=== PATIENT | male | born 1965 | race Caucasian/White ===

== ENCOUNTER 2016-09-25 14:24 | Inpatient (IN) | payer OTHER, MEDICARE, MEDICAID ==
[2016-09-25 20:16] VITALS: BP 167/89; PULSE 67; RESP 18; TEMP 98.2; O2SAT 100
[2016-09-25] MEDS ORDERED: NITROGLYCERIN-DEXTROSE INJ 250 ML IV SCH (21:00)
[2016-09-25] MEDS ORDERED: ACETAMINOPHEN 325 MG TAB PO PRN (21:00)
[2016-09-25] MEDS ORDERED: HEPARIN SODIUM - IV 10,000 UNITS/10 ML VIAL IV ONE (21:00)
[2016-09-25] MEDS ORDERED: SODIUM CHLORIDE 0.9% FLUSH 5 ML FLUSH IVF PRN (21:00)
[2016-09-25] MEDS ORDERED: NITROGLYCERIN 0.4 MG SL 25 TABS/BTL SL PRN (21:00)
[2016-09-25] MEDS: SODIUM CHLORIDE 0.9% FLUSH 5 ML FLUSH IVF SCH (21:00)
[2016-09-25 22:19] LABS: HEMATOCRIT 45.5 % (39.0-51.0); MEAN CELL VOLUME 91.4 FL (80.0-100.0); MEAN CORPUSCULAR HEMOGLOBIN 30.2 PG (27.0-34.0); PLATELET COUNT 176 TH/MM3 (150-450); RED BLOOD COUNT 4.98 MIL/MM3 (4.50-5.90); RED CELL DISTRIBUTION WIDTH 16.4 % (11.6-17.2); REVIEW FLAG FINAL; WHITE BLOOD COUNT 10.7 TH/MM3 (4.0-11.0)
[2016-09-25 22:46] LABS: APTT (PATIENT) 27.4 SEC (24.3-30.1); INTERNATIONAL NORMALIZED RATIO 1.1 RATIO; PROTHROMBIN TIME - PATIENT 12.3 SEC (9.8-11.6)
[2016-09-25 23:00] VITALS: PULSE 72
[2016-09-25] MEDS: HEPARIN-D5W INJ 250 ML IV SCH (23:10)
[2016-09-25] MEDS: ATORVASTATIN 80 MG TAB PO SCH (23:11)
[2016-09-25] MEDS: METOPROLOL SUCCINATE 25 MG EXTENDED RELEASE TAB PO SCH (23:11)
[2016-09-25] MEDS: MORPHINE SULFATE 4 MG/ML INJ IV PRN (23:11)
[2016-09-26] VITALS (24 sets, daily range): BP systolic 126–159; BP diastolic 66–88; PULSE 72–96; RESP 14–18; TEMP 98.2–98.7; O2SAT 92–100
[2016-09-26] MEDS: MORPHINE SULFATE 4 MG/ML INJ IV PRN ×3 (03:29→20:53)
[2016-09-26 04:54] LABS: APTT (PATIENT) 28.8 SEC (24.3-30.1)
[2016-09-26 05:24] LABS: INTERNATIONAL NORMALIZED RATIO 1.1 RATIO; PROTHROMBIN TIME - PATIENT 12.4 SEC (9.8-11.6)
[2016-09-26 07:01] LABS: BASOPHIL % 0.2 % (0.0-2.0); EOSINOPHIL % 0.3 % (0.0-4.0); HEMATOCRIT 42.8 % (39.0-51.0); HEMO FLAGS DIFF FINAL; LYMPH % 2.1 % (9.0-44.0); LYMPHOCYTE # 0.2 TH/MM3 (1.0-4.8); MEAN CELL VOLUME 90.9 FL (80.0-100.0); MEAN CORPUSCULAR HEMOGLOBIN 30.5 PG (27.0-34.0); MEAN CORPUSCULAR HGB CONC 33.5 % (32.0-36.0); MONO % 12.5 % (0.0-8.0); NEUT % 84.9 % (16.0-70.0); PLATELET COUNT 166 TH/MM3 (150-450); RED BLOOD COUNT 4.71 MIL/MM3 (4.50-5.90); RED CELL DISTRIBUTION WIDTH 16.3 % (11.6-17.2); WHITE BLOOD COUNT 9.4 TH/MM3 (4.0-11.0)
[2016-09-26 07:30] LABS: BICARBONATE 24.9 MEQ/L (21.0-32.0); POTASSIUM 4.4 MEQ/L (3.5-5.1)
[2016-09-26] MEDS ORDERED: ASPIRIN EC 325 MG TABEC PO SCH (09:00)
[2016-09-26] MEDS: METOPROLOL SUCCINATE 25 MG EXTENDED RELEASE TAB PO SCH ×2 (09:46→20:53)
[2016-09-26] MEDS: SPIRONOLACTONE 25 MG TAB PO SCH ×2 (09:46→17:13)
[2016-09-26] MEDS: amLODIPine BESYLATE 5 MG TAB PO SCH (09:46)
[2016-09-26] MEDS: SODIUM CHLORIDE 0.9% FLUSH 5 ML FLUSH IVF SCH ×2 (09:47→20:54)
--- NOTE | 2016-09-26 11:30 | MB ---
cc: GEOVANY GUZMAN DO DATE OF CONSULTATION: 09/26/2016 REASON FOR CONSULTATION Elevated troponin. HISTORY OF PRESENT ILLNESS Maynor Beasley is a pleasant 51-year-old male who was transferred from [facility] for cardiac catheterization. He originally presented there on September 24, 2016 due to chest pain. Chest pain was somewhat sharp across his chest but did radiate to his left arm and he did get short of breath and nauseated with it. Originally troponins were not done as he started also complaining of some of epigastric pain. Because of this he had ultrasound done of his gallbladder with the report stating that he had some large stones and a mildly dilated common bile duct and a mildly distended gallbladder. Troponins were then checked and noted to be elevated at 8. He started complaining of some worse chest pain and at that time he was placed on a heparin drip and a nitroglycerin drip and sent to the ICU. I was called by ___ as they are unable to place him on their manager laboratory table as he weighs greater than what their table will take. Weight over there was supposedly 240 kilograms. He was transferred here with the intent of possible cardiac catheterization. PAST MEDICAL HISTORY 1. Hypertension. 2. Morbid obesity. 3. Chronic kidney disease. 4. Gallstones on ultrasound. 5. History of DVT and PE. PAST SURGICAL HISTORY 1. Appendectomy. 2. Cataract surgery. 3. IVC filter placed due to DVTs and PEs. ALLERGIES NO KNOWN DRUG ALLERGIES. MEDICATIONS (Transferred from [facility] in [facility]) 1. Heparin drip. 2. Nitroglycerin drip. 3. Norvasc 5 mg daily. 4. Aspirin 81 mg daily. 5. Lipitor 80 mg every night. 6. Metoprolol succinate 25 mg b.i.d. 7. Morphine 2 mg IV every 4 hours as needed for pain. 8. Nitro sublingual. 9. Spironolactone 25 mg b.i.d. 10. Was starting coumadin for his history of DVT and PE. FAMILY HISTORY Denies premature coronary artery disease or sudden cardiac within the family. SOCIAL HISTORY The patient denies smoking. Denies alcohol or drug abuse. REVIEW OF SYSTEMS 14 systems were reviewed including osteopathic pertinent positives and negatives above, otherwise negative. PHYSICAL EXAMINATION VITAL SIGNS: Temperature 98.2, heart rate 79, blood pressure 150/88, respirations 18, pulse ox 100%. Actual weight 267 kilograms. GENERAL: In general the patient appears well, in no acute distress, alert, awake and oriented x3. HEENT: Extraocular muscles intact. Mucous membranes moist. NECK: Neck is supple. No JVD at 45 degrees. No carotid bruits noted bilaterally. Carotid upstroke is brisk in nature. HEART: Heart is distant due to body habitus but no overt murmurs noted. LUNGS: Lungs have decreased breath sounds throughout. No rales noted. ABDOMEN: Abdomen is obese, nontender. EXTREMITIES: Show chronic venostasis. SKIN: Warm, dry and intact. NEUROLOGIC: No focal deficits. LABORATORY FINDINGS Hemoglobin 14.3, hematocrit 42.8, platelets 166. Potassium 4.4, BUN 23, creatinine 1.56. IMPRESSION 1. Mlw-[id number] myocardial infarction. 2. Morbid obesity with a BMI greater than 60. 3. Chronic kidney disease. 4. Hyperlipidemia. 5. History of DVT and PE with IVC placement. RECOMMENDATIONS 1. At this time the patient's weight is 267 kilograms and this was re-tested which will not fit on our table of 250 kilograms. We will attempt to see if there is any other cath labs in the area that is able to take more than 267 kilograms. 2. If we are unable to find a table for him to undergo cardiac catheterization due to his weight, he may need to be transferred back to [facility] and attempt medical management for his [id number] myocardial infarction. 3. We will continue him on heparin and nitroglycerin at this time. 4. Further recommendations will be made throughout the hospital course. Thank you for allowing me to see Maynor Beasley. If there are any questions, please do not hesitate to call. Geovany Guzman DO VGP/TLL /10:29 AM 10:53 AM
--- NOTE | 2016-09-26 13:17 | PD.CARD.PN ---
Objective Vital Signs / I&O Vital Signs Date Time Temp Pulse Resp B/P Pulse Ox O2 Delivery O2 Flow Rate FiO2 09/26/16 08:00 98.7 83 14 143/77 92 09/26/16 06:00 79 09/26/16 05:00 72 09/26/16 04:00 73 09/26/16 03:28 98.2 74 18 150/88 100 09/26/16 03:00 72 09/26/16 02:00 72 09/26/16 01:00 79 09/26/16 00:00 98.2 80 18 146/78 100 09/26/16 00:00 77 09/25/16 23:20 16 09/25/16 23:00 72 09/25/16 20:16 98.2 67 18 167/89 100 I/O 09/25/16 09/25/16 09/25/16 09/26/16 09/26/16 09/26/16 07:00 15:00 23:00 07:00 15:00 23:00 Output Total 500 ml Balance -500 ml Output Urine Total 500 ml Laboratory Laboratory Tests Test 09/25/16 09/26/16 09/26/16 22:09 04:28 06:41 White Blood Count 10.7 TH/MM3 9.4 TH/MM3 Red Blood Count 4.98 MIL/MM3 4.71 MIL/MM3 Hemoglobin 15.0 GM/DL 14.3 GM/DL Hematocrit 45.5 % 42.8 % Mean Corpuscular Volume 91.4 FL 90.9 FL Mean Corpuscular Hemoglobin 30.2 PG 30.5 PG Mean Corpuscular Hemoglobin 33.0 % 33.5 % Concent Red Cell Distribution Width 16.4 % 16.3 % Platelet Count 176 TH/MM3 166 TH/MM3 Mean Platelet Volume 7.8 FL 7.6 FL Prothrombin Time 12.3 SEC 12.4 SEC Prothromb Time International 1.1 RATIO 1.1 RATIO Ratio Activated Partial 27.4 SEC 28.8 SEC Thromboplast Time Neutrophils (%) (Auto) 84.9 % Lymphocytes (%) (Auto) 2.1 % Monocytes (%) (Auto) 12.5 % Eosinophils (%) (Auto) 0.3 % Basophils (%) (Auto) 0.2 % Neutrophils # (Auto) 8.0 TH/MM3 Lymphocytes # (Auto) 0.2 TH/MM3 Monocytes # (Auto) 1.2 TH/MM3 Eosinophils # (Auto) 0.0 TH/MM3 Basophils # (Auto) 0.0 TH/MM3 CBC Comment DIFF FINAL Differential Comment Sodium Level 140 MEQ/L Potassium Level 4.4 MEQ/L Chloride Level 106 MEQ/L Carbon Dioxide Level 24.9 MEQ/L Anion Gap 9 MEQ/L Blood Urea Nitrogen 23 MG/DL Creatinine 1.56 MG/DL Estimat Glomerular Filtration 47 ML/MIN Rate Random Glucose 153 MG/DL Calcium Level 8.7 MG/DL Assessment and Plan Problem List: (1) NSTEMI (non-ST elevated myocardial infarction) (2) Morbid obesity with BMI of 60.0-69.9, adult Assessment and Plan 1) Transfer to [place] for cardiac catheterization. Weight measured at [facility] was 245 kgs. On arrival here, weight was 268kg, checked twice. Table maximum is 250kg. 2) Unable to cath here 3) Called [facility] in [place], but their slabber table only hold 250 kgs also. 4) No other cath labs in the area can accept his weight on the table 5) Spoke to Dr. Giordano, unable to cath, will transfer back 6) Attempt medical management 7) Weight loss, if in the future he is under the weight limit, could consider ischemic evaluation and if positive then cardiac catheterization Geovany Gutierrez DO Sep 26, 2016 13:17
[2016-09-26 16:14] LABS: APTT (PATIENT) 30.1 SEC (24.3-30.1)
[2016-09-26] MEDS: ATORVASTATIN 80 MG TAB PO SCH (20:53)
[2016-09-26 23:47] LABS: APTT (PATIENT) 30.8 SEC (24.3-30.1)
[2016-09-27] VITALS (27 sets, daily range): BP systolic 131–161; BP diastolic 58–80; PULSE 66–84; RESP 16–25; TEMP 97.7–100.2; O2SAT 93–97
[2016-09-27] MEDS: MORPHINE SULFATE 4 MG/ML INJ IV PRN ×6 (00:33→21:59)
[2016-09-27 05:29] LABS: APTT (PATIENT) 32.4 SEC (24.3-30.1)
[2016-09-27] MEDS: SPIRONOLACTONE 25 MG TAB PO SCH ×2 (09:30→18:03)
[2016-09-27] MEDS: amLODIPine BESYLATE 5 MG TAB PO SCH (09:30)
[2016-09-27] MEDS: METOPROLOL SUCCINATE 25 MG EXTENDED RELEASE TAB PO SCH ×2 (09:30→20:48)
[2016-09-27] MEDS: SODIUM CHLORIDE 0.9% FLUSH 5 ML FLUSH IVF SCH ×2 (09:31→20:49)
--- NOTE | 2016-09-27 11:29 | PD.CARD.PN ---
Subjective Subjective Remarks No chest pain, no shortness of breath, off nitro drip Objective Medications Current Medications Medications (Trade) Dose Ordered Sig/Ayan Route Start Time Stop Time Status Last Admin (NS Flush) 2 ml BID IVF 09/25/16 21:00 09/27/16 09:31 IV Flush 2 ml 2 ml UNSCH PRN IVF 09/25/16 21:00 (Nitroglycerin-Dextrose Inj) 250 ml @ 0 mls/hr TITRATE IV 09/25/16 21:00 09/27/16 09:44 (Ecotrin Ec) 81 mg DAILY PO 09/26/16 09:00 09/26/16 09:46 (Nitrostat Sl) 0.4 mg Q5M PRN SL 09/25/16 21:00 Acetaminophen 650 mg 650 mg Q6H PRN PO 09/25/16 21:00 (Heparin-D5W Inj) 250 ml @ 0 mls/hr TITRATE IV 09/25/16 21:00 09/25/16 23:10 (Norvasc) 5 mg DAILY PO 09/26/16 09:00 09/27/16 09:30 (Aldactone) 25 mg BID@09,18 PO 09/26/16 09:00 09/27/16 09:30 (Toprol Xl) 25 mg BID PO 09/25/16 21:00 09/27/16 09:30 (Lipitor) 80 mg HS PO 09/25/16 21:00 09/26/16 20:53 (Morphine Inj) 2 mg Q4H PRN IV 09/25/16 22:45 09/27/16 09:32 Vital Signs / I&O Vital Signs Date Time Temp Pulse Resp B/P Pulse Ox O2 Delivery O2 Flow Rate FiO2 09/27/16 08:00 98.3 73 22 161/77 94 09/27/16 07:24 75 09/27/16 05:32 98.2 71 16 146/77 97 09/27/16 05:00 75 09/27/16 04:00 69 09/27/16 03:00 74 09/27/16 02:00 80 09/27/16 01:00 81 09/27/16 00:00 81 09/26/16 23:01 98.2 78 16 143/74 97 09/26/16 23:00 78 09/26/16 22:00 76 09/26/16 21:00 81 09/26/16 20:00 80 09/26/16 19:30 98.2 82 16 138/66 97 09/26/16 16:00 81 09/26/16 15:00 98.4 96 16 126/66 96 09/26/16 14:00 80 09/26/16 13:00 79 09/26/16 12:00 72 I/O 09/26/16 09/26/16 09/26/16 09/27/16 09/27/16 09/27/16 07:00 15:00 23:00 07:00 15:00 23:00 Intake Total 1045 ml 480 ml Output Total 500 ml 1250 ml 1025 ml Balance -500 ml -205 ml -545 ml Intake Oral 720 ml 480 ml IV Total 325 ml Output Urine Total 500 ml 1250 ml 1025 ml # Bowel Movements 0 Physical Exam GENERAL: NAD, AAOx3 SKIN: Warm and dry. HEAD: Atraumatic. Normocephalic. EYES: Pupils equal and round. No scleral icterus. No injection or drainage. ENT: No nasal bleeding or discharge. Mucous membranes pink and moist. NECK: Trachea midline. No JVD. CARDIOVASCULAR: Regular rate and rhythm. RESPIRATORY: No accessory muscle use. Decreased bilaterally due to body habitus GASTROINTESTINAL: Abdomen soft, obese, non-tender MUSCULOSKELETAL: Extremities with significant venous status changes NEUROLOGICAL: Awake and alert. No obvious cranial nerve deficits. Motor grossly within normal limits. Five out of 5 muscle strength in the arms and legs. Normal speech. PSYCHIATRIC: Appropriate mood and affect; insight and judgment normal. Laboratory Laboratory Tests Test 09/26/16 09/26/16 09/27/16 15:44 22:57 05:05 Activated Partial 30.1 SEC 30.8 SEC 32.4 SEC Thromboplast Time Assessment and Plan Problem List: (1) NSTEMI (non-ST elevated myocardial infarction) (2) Morbid obesity with BMI of 60.0-69.9, adult Assessment and Plan 1) Transfer to [place] for cardiac catheterization. Weight measured at [facility] was 245 kgs. On arrival here, weight was 268kg, checked twice. Table maximum is 250kg, and that's with the table in a stable position, not floating. 2) Unable to cath here 3) Called [facility] in [place], but their builder's labourer table only hold 250 kgs also. 4) No other cath labs in the area can accept his weight on the table 5) Spoke to Dr. Giordano, unable to cath, will transfer back 6) Attempt medical management 7) Weight loss, if in the future he is under the weight limit, could consider ischemic evaluation and if positive then cardiac catheterization 8) Continue heparin drip, nitro drip off, will start Imdur 30mg, titrate medications Geovany Gutierrez DO Sep 27, 2016 11:29
[2016-09-27] MEDS ORDERED: ISOSORBIDE MONONITRATE 30 MG TAB PO ONE (11:30)
[2016-09-27] MEDS: ASPIRIN EC 81 MG TABEC PO SCH (14:24)
[2016-09-27] MEDS: ATORVASTATIN 80 MG TAB PO SCH (20:48)
[2016-09-27 21:52] LABS: APTT (PATIENT) 31.5 SEC (24.3-30.1)
[2016-09-27] MEDS: HEPARIN-D5W INJ 250 ML IV SCH (22:05)
[2016-09-28] VITALS (20 sets, daily range): BP systolic 126–148; BP diastolic 57–82; PULSE 69–86; RESP 18–25; TEMP 98.6–99.9; O2SAT 93–97
[2016-09-28] MEDS: MORPHINE SULFATE 4 MG/ML INJ IV PRN ×6 (02:00→21:12)
[2016-09-28 04:44] LABS: APTT (PATIENT) 31.2 SEC (24.3-30.1)
[2016-09-28] MEDS ORDERED: ISOSORBIDE MONONITRATE 30 MG TAB PO SCH (07:00)
[2016-09-28 08:14] LABS: HEMATOCRIT 40.6 % (39.0-51.0); MEAN CELL VOLUME 90.3 FL (80.0-100.0); MEAN CORPUSCULAR HEMOGLOBIN 30.7 PG (27.0-34.0); PLATELET COUNT 171 TH/MM3 (150-450); RED CELL DISTRIBUTION WIDTH 16.2 % (11.6-17.2); REVIEW FLAG FINAL
--- NOTE | 2016-09-28 08:22 | PD.CARD.PN ---
Subjective Subjective Remarks No chest pain over night Objective Medications Current Medications Medications (Trade) Dose Ordered Sig/Ayan Route Start Time Stop Time Status Last Admin (NS Flush) 2 ml BID IVF 09/25/16 21:00 09/27/16 20:49 IV Flush 2 ml 2 ml UNSCH PRN IVF 09/25/16 21:00 (Nitroglycerin-Dextrose Inj) 250 ml @ 0 mls/hr TITRATE IV 09/25/16 21:00 09/27/16 09:44 (Nitrostat Sl) 0.4 mg Q5M PRN SL 09/25/16 21:00 Acetaminophen 650 mg 650 mg Q6H PRN PO 09/25/16 21:00 (Heparin-D5W Inj) 250 ml @ 0 mls/hr TITRATE IV 09/25/16 21:00 09/27/16 22:05 (Norvasc) 5 mg DAILY PO 09/26/16 09:00 09/27/16 09:30 (Aldactone) 25 mg BID@09,18 PO 09/26/16 09:00 09/27/16 18:03 (Toprol Xl) 25 mg BID PO 09/25/16 21:00 09/27/16 20:48 (Lipitor) 80 mg HS PO 09/25/16 21:00 09/27/16 20:48 (Morphine Inj) 2 mg Q4H PRN IV 09/25/16 22:45 09/28/16 06:03 (Imdur) 30 mg DAILY@07 PO 09/28/16 07:00 09/28/16 07:00 (Ecotrin Ec) 81 mg DAILY PO 09/27/16 13:00 09/27/16 14:24 Vital Signs / I&O Vital Signs Date Time Temp Pulse Resp B/P Pulse Ox O2 Delivery O2 Flow Rate FiO2 09/28/16 06:01 69 09/28/16 05:00 69 09/28/16 04:00 74 09/28/16 03:10 98.8 73 24 147/82 96 09/28/16 03:01 72 09/28/16 02:05 18 09/28/16 02:00 74 09/28/16 01:00 73 09/28/16 00:01 74 09/27/16 23:15 99.2 73 24 143/69 94 09/27/16 23:00 75 2/9/17 22:00 78 09/27/16 21:00 78 09/27/16 20:01 100.1 79 23 143/70 96 09/27/16 20:00 79 09/27/16 19:00 80 09/27/16 18:00 76 09/27/16 17:00 75 09/27/16 16:00 74 09/27/16 15:00 100.2 76 20 131/58 94 09/27/16 15:00 74 09/27/16 14:00 77 09/27/16 13:00 77 09/27/16 12:00 98.6 77 25 150/69 93 09/27/16 12:00 76 09/27/16 11:00 70 09/27/16 10:00 84 09/27/16 09:00 72 I/O 09/27/16 09/27/16 09/27/16 09/28/16 09/28/16 09/28/16 07:00 15:00 23:00 07:00 15:00 23:00 Intake Total 480 ml 882 ml 1331 ml Output Total 1025 ml 1330 ml 1475 ml Balance -545 ml -448 ml -144 ml Intake Oral 480 ml 720 ml 720 ml IV Total 162 ml 611 ml Output Urine Total 1025 ml 1330 ml 1475 ml # Voids 5 # Bowel Movements 0 0 Physical Exam GENERAL: NAD, AAOx3 SKIN: Warm and dry. HEAD: Atraumatic. Normocephalic. EYES: Pupils equal and round. No scleral icterus. No injection or drainage. ENT: No nasal bleeding or discharge. Mucous membranes pink and moist. NECK: Trachea midline. No JVD. CARDIOVASCULAR: Regular rate and rhythm. RESPIRATORY: No accessory muscle use. Decreased bilaterally due to body habitus GASTROINTESTINAL: Abdomen soft, obese, non-tender MUSCULOSKELETAL: Extremities with significant venous status changes NEUROLOGICAL: Awake and alert. No obvious cranial nerve deficits. Motor grossly within normal limits. Five out of 5 muscle strength in the arms and legs. Normal speech. PSYCHIATRIC: Appropriate mood and affect; insight and judgment normal. Laboratory Laboratory Tests Test 09/27/16 09/27/16 09/28/16 09/28/16 11:06 21:34 04:06 07:05 Activated Partial 31.0 SEC 31.5 SEC 31.2 SEC Thromboplast Time White Blood Count 9.0 TH/MM3 Red Blood Count 4.50 MIL/MM3 Hemoglobin 13.8 GM/DL Hematocrit 40.6 % Mean Corpuscular Volume 90.3 FL Mean Corpuscular Hemoglobin 30.7 PG Mean Corpuscular Hemoglobin 34.0 % Concent Red Cell Distribution Width 16.2 % Platelet Count 171 TH/MM3 Mean Platelet Volume 8.2 FL Assessment and Plan Problem List: (1) NSTEMI (non-ST elevated myocardial infarction) (2) Morbid obesity with BMI of 60.0-69.9, adult Assessment and Plan 1) Transfer to [place] for cardiac catheterization. Weight measured at [facility] was 245 kgs. On arrival here, weight was 268kg, checked twice. Table maximum is 250kg, and that's with the table in a stable position, not floating, not ideal for cardiac catheterization 2) Unable to cath here 3) Called [facility] in [place], but their label stitcher table only hold 250 kgs also. 4) No other cath labs in the area can accept his weight on the table 5) Spoke to Dr. Giordano, unable to cath, will transfer back 6) Attempt medical management, currently no chest pain 7) Weight loss, if in the future he is under the weight limit, could consider ischemic evaluation and if positive then cardiac catheterization 8) Continue heparin drip, nitro drip off, will start Imdur 30mg, titrate medications... per original plans from [facility], restart Coumadin Geovany Gutierrez DO Sep 28, 2016 08:22
[2016-09-28] MEDS ORDERED: DO NOT ADM ANY ANTICOAGULANT DRUGS XX PRN (08:45)
[2016-09-28] MEDS: SPIRONOLACTONE 25 MG TAB PO SCH ×2 (09:38→17:38)
[2016-09-28] MEDS: SODIUM CHLORIDE 0.9% FLUSH 5 ML FLUSH IVF SCH ×2 (09:38→20:48)
[2016-09-28] MEDS: ASPIRIN EC 81 MG TABEC PO SCH (09:38)
[2016-09-28] MEDS: METOPROLOL SUCCINATE 25 MG EXTENDED RELEASE TAB PO SCH ×2 (09:39→20:48)
[2016-09-28] MEDS: amLODIPine BESYLATE 5 MG TAB PO SCH (09:39)
[2016-09-28 11:09] LABS: INTERNATIONAL NORMALIZED RATIO 1.1 RATIO
[2016-09-28 11:11] LABS: APTT (PATIENT) 33.1 SEC (24.3-30.1)
[2016-09-28] MEDS: HEPARIN-D5W INJ 250 ML IV SCH (14:54)
[2016-09-28] MEDS ORDERED: WARFARIN SOD 10 MG TAB PO ONE ×2 (16:00)
[2016-09-28 16:25] LABS: APTT (PATIENT) 30.4 SEC (24.3-30.1)
[2016-09-28] MEDS: ATORVASTATIN 80 MG TAB PO SCH (20:48)
[2016-09-28 21:32] LABS: APTT (PATIENT) 27.9 SEC (24.3-30.1)
[2016-09-29] MEDS ORDERED: WARFARIN SOD 5 MG TAB PO SCH (16:00)
--- NOTE | 2016-11-17 11:55 | HHI.DS ---
Discharge Summary Admission Date Sep 25, 2016 at 20:00 Discharge Date: Sep 28, 2016 Admitting Diagnosis NSTEMI (1) NSTEMI (non-ST elevated myocardial infarction) Diagnosis: Principal (2) Morbid obesity with BMI of 60.0-69.9, adult Diagnosis: Principal Brief History Presented to [facility], found to have elevated troponins. Unable to be cathed at [facility] due to weight. Transferred here for consideration, at the time weight was 240kgs. On arrival here, weight was 265kgs. Unsure if weight was incorrectly done at [facility]? Weights rechecked multiple times to make sure. Unable to be done here. No other cath tables in the area would hold him. Continued on Heparin drip. Nitro drip weaned off. Transferred back to [facility] for medical management. Pt Condition on Discharge: Stable Discharge Disposition: Disch to Another Hospital Discharge Instructions DIET: Follow Instructions for: Heart Healthy Diet Activities you can perform: See Additionl Instruction Geovany Gutierrez DO Nov 17, 2016 11:55
== END 2016-09-28 21:24 | disposition short-term general hospital (02) | DRG 281 ==
LOC: OBSVTOIN 20:00 → HCPC 20:00
PROVIDERS: ADMIT Internal Medicine; ATTEND Internal Medicine
DX: I21.4 Non-ST elevation (NSTEMI) myocardial infarction (principal); Z68.44 Body mass index [BMI] 60.0-69.9, adult; I12.9 Hypertensive chronic kidney disease with stage 1 through stage 4 chronic kidney disease, or unspecified chronic kidney disease; E66.01 Morbid (severe) obesity due to excess calories; N18.9 Chronic kidney disease, unspecified; E78.5 Hyperlipidemia, unspecified; K82.8 Other specified diseases of gallbladder; Z79.01 Long term (current) use of anticoagulants; Z86.711 Personal history of pulmonary embolism; Z86.718 Personal history of other venous thrombosis and embolism
CPT/HCPCS: 76937; 80048; 85025; 85027; 85610; 85730; J1644; J2270